=== PATIENT | female | born 1945 | race Caucasian/White ===

== ENCOUNTER → 2017-01-07 | Outpatient (CLI) | payer OTHER ==
[~2017-01-07] VITALS: Ht 152.4 cm; Wt 48.5 kg
[~2017-01-07] MED LIST: AMBIEN 5 MG TABL5 M1 PO; CIPROFLOXACIN500 M1 PO; FLAGYL500 MG PO; IBUPROFEN 600600 M1 PO; MAGNESIUM 300300 MG PO; MELATONIN3 MG PO; MOBIC7.5 MG PO; MOXIFLOXACIN H400 MG PO
--- NOTE | ~2017-01-07 | P ---
[facility] [place] [address] PROCEDURE REPORT Name: TAMIKO ZHAO Room #: REG [facility]erm[facility]erm[facility]#: [id number] Admission: 01/07/17 Attend Phys: Rick Pena Discharge: Date of : 49 Report #: [id number] THIS REPORT FOR: //name// CC: Rick Webber MD DATE OF SERVICE: 01/07/2017 PROCEDURE PERFORMED: Colonoscopy with biopsies. HISTORY OF PRESENT ILLNESS: The patient is a 71-year-old female with a history of diverticulitis. She had an episode in June 2016 and then again in September 2016, treated with antibiotics, both times. She does report intermittent left lower quadrant abdominal pain. Her last colonoscopy was in May 2010. Two polyps were removed at that time, one was hyperplastic and one was a tubular adenoma. No family history of colon cancer. PROCEDURE: The risks and benefits of the procedure were explained to the patient, those risks including, but not limited to bleeding, perforation, and the risk of sedation. She understood these risks and gave informed consent. Sedation was given using propofol per anesthesia. Next, a digital rectal exam was initially performed, which was normal. Next, using a standard Fujinon colonoscope, the scope was placed in the patient's anus and advanced under direct vision to the cecum. The overall prep was excellent. In the cecum, there was a 3-mm sessile polyp, this was removed with cold forceps, otherwise normal. The ileocecal valve was normal. The ascending, transverse and descending colon were normal. Multiple small diverticula were noted in the sigmoid colon. No evidence of inflammation, otherwise normal. The rectal mucosa was normal. On retroflexion, medium sized nonbleeding internal hemorrhoids were noted. The scope was then withdrawn and the procedure terminated. The patient tolerated the procedure well. IMPRESSION: 1. Sigmoid diverticulosis. 2. Small cecal polyp. 3. Internal hemorrhoids. 4. Otherwise, normal colonoscopy. RECOMMENDATIONS: 1. Await biopsy results. 2. If polyp is hyperplastic, repeat in 10 years; if adenomatous polyp, repeat in 5 years. 3. The patient apparently has had 4 episodes of diverticulitis. We discussed the possibility of surgical resection as an option. She actually has seen [address] [address] PROCEDURE REPORT Name: TAMIKO ZHAO Room #: REG PADMA Cliare#: [id number] Admission: 01/07/17 Attend Phys: Rick Pena Discharge: Date of : 49 Report #: [id number] Taylor in the past as well. Thank you for allowing me to participate in her care. <ELECTRONICALLY SIGNED> By: Rick Bridges MD 01/08/17 1714 0940 1457 Rick Bridges MD /nt
--- NOTE | ~2017-01-07 | S ---
[facility] [place] [address] SURGICAL PATH RPT PROCEDURE Name: NATACHA ZHAO Room #: REG CARORoc Claire#: [id number] Admission: 01/07/17 Date of : 49 Discharge: Report #: [id number] Path Case #: [id number] PATHOLOGY REPORT COLLECTION DATE: 01/07/2017 RECEIVED DATE: 01/07/2017 SUBMITTING PHYS: Dr. Rick Bridges OTHER PHYS: Dr. Arjun Webber SPECIMEN(S) RECEIVED: A.Polyp at cecum * * * * * * * * * * * * FINAL DIAGNOSIS: Polyp, at cecum, endoscopic biopsy: - Tubular adenoma. - Negative for high grade dysplasia. PATHOLOGIST: Elsie Lara M.D. REPORT ELECTRONICALLY SIGNED BY: Elsie Lara M.D. DATE/TIME: 01/08/2017 14:52 * * * * * * * * * * * * GROSS PATHOLOGY: Received in formalin labeled "Natacha Zhao, polyp at cecum," are three segments of hernández soft tissue measuring 0.6 x 0.3 x 0.1 cm in aggregate dimensions and ranging from 0.1 to 0.6 cm in maximum dimension. The specimen is submitted entirely in cassette A1. (CAA; 01/07/2017) CLINICAL HISTORY: Pre-op diagnosis: Diverticulitis Post-op diagnosis: Colon polyp, diverticulosis INITIAL CPT CODE(S): A; 66602 Professional services performed by [facility] at [facility] [address] [place] [address] Technical services performed by [facility] at [address] [place] [address], [address] [address]. [facility] [address] [place] [address] SURGICAL PATH RPT PROCEDURE Name: NATACHA ZHAO Room #: REG PADMA Claire#: [id number] Admission: 01/07/17 Date of : 49 Discharge: Report #: [id number] Path Case #: [id number] [facility] [address] [address] PHONE: [phone] DIRECTOR: Dustin Campbell M.D. * * * END OF REPORT * * *
== END | disposition home or self-care (01) ==
LOC: GI 07:58
DX: Z09 Encounter for follow-up examination after completed treatment for conditions other than malignant neoplasm (principal); D12.0 Benign neoplasm of cecum; K57.32 Diverticulitis of large intestine without perforation or abscess without bleeding; K64.8 Other hemorrhoids; Z87.19 Personal history of other diseases of the digestive system; Z98.890 Other specified postprocedural states
CPT/HCPCS: 62110; 62900

== ENCOUNTER 2017-02-26 05:23 | Inpatient (IN) | payer OTHER ==
[2017-02-26] VITALS (10 sets, daily range): BP systolic 102–153; BP diastolic 47–98
[~2017-02-26] VITALS: Ht 152.4 cm; Wt 49.0 kg
--- NOTE | ~2017-02-26 | S ---
[facility] [place] [address] SURGICAL PATH RPT PROCEDURE Name: NATACHA ZHAO Room #: 411-P DIS IN M.R.#: [id number] Admission: 02/26/17 Date of : 49 Discharge: 02/28/17 Report #: [id number] Path Case #: [id number] PATHOLOGY REPORT COLLECTION DATE: 02/26/2017 RECEIVED DATE: 02/26/2017 SUBMITTING PHYS: Dr. Ike Vazquez OTHER PHYS: Dr. Arjun Webber SPECIMEN(S) RECEIVED: A.Sigmoid colon- open end proximal * * * * * * * * * * * * FINAL DIAGNOSIS: Large intestine, sigmoid colon, colectomy: - Chronic diverticulitis in a background of extensive diverticulosis. - Margins of resection unremarkable and free of dysplasia or malignancy. (IUV:db; 02/28/2017) PATHOLOGIST: Elsie Lara M.D. REPORT ELECTRONICALLY SIGNED BY: Elsie Lara M.D. DATE/TIME: 02/28/2017 15:41 * * * * * * * * * * * * GROSS PATHOLOGY: The specimen is received in formalin labeled "Natacha Zhao, sigmoid colon, opened end proximal". Received is an oriented segment of colon measuring 5.4 cm in length by 1.8 cm in diameter. One margin is stapled closed and the opposite margin is opened. The attached pericolic fat measures up to 2.2 cm in thickness. The serosal surface is pink-hernández in appearance with a slight amount of overlying adhesions. The specimen is opened along the antimesenteric line to reveal light hernández mucosa with normal architectural folds. Sectioning reveals several diverticula, however, inflammation is not grossly distinct. Sectioning through the attached pericolic fat reveals no readily identifiable lymph nodes. The specimen is submitted representatively as follows: A1 proximal margin A2 distal margin A3-A4 client account representative sections of diverticula. (CAA; 02/27/2017) CLINICAL HISTORY: Diverticulitis [address] [address] SURGICAL PATH RPT PROCEDURE Name: NATACHA ZHAO Room #: 411-P [facility] IN M.R.#: [id number] Admission: 02/26/17 Date of : 49 Discharge: 02/28/17 Report #: [id number] Path Case #: [id number] INITIAL CPT CODE(S): A; 15409 Professional services performed by [facility] at [address] , [place] [address] Technical services performed by [employer] [employer] at [address] [place] [address], [facility] [address] [place] [address]. [facility] [address] [place] [address] PHONE: [phone] DIRECTOR: Dustin Campbell M.D. * * * END OF REPORT * * *
--- NOTE | ~2017-02-26 | O ---
[facility] [place] [address] OPERATIVE REPORT Name: TAMIKO ZHAO Stevie Room #: 411-P [facility] IN M.R.#: [id number] Admission: 02/26/17 Attend Phys: Ike Vazquez MD, Discharge: 02/28/17 Date of : 49 Report #: [id number] THIS REPORT FOR: //name// CC: Ike Vazquez Arjun Lawanda DATE OF SERVICE: 02/26/2017 PREOPERATIVE DIAGNOSES: Chronic recurrent sigmoid diverticulitis. PREOPERATIVE DIAGNOSIS: Chronic recurrent sigmoid diverticulitis. PROCEDURE PERFORMED: Robotic-assisted laparoscopic sigmoid colectomy. SURGEON: Ike Vazquez M.D. MECHANICAL CAD DESIGNER: Oneil Mittal M.D. ANESTHESIA: General endotracheal anesthesia. ESTIMATED BLOOD LOSS: Minimal (less than 10 mL). COMPLICATIONS: None appreciated. SPECIMENS: Segment of sigmoid colon to pathology with the open end being proximal. HISTORY OF PRESENT ILLNESS: The patient is a 71-year-old female who has had 4 bouts of acute sigmoid diverticulitis that have required antibiotic therapy over the past several months. The patient has undergone a colonoscopy showing multiple small diverticula within the sigmoid colon, but no other abnormal masses. After a thorough counseling, the patient has elected for sigmoid colectomy to avoid recurrent bouts of diverticulitis moving forward. DESCRIPTION OF PROCEDURE: After explaining the risks, benefits and alternatives of the procedure with the patient in detail in the preoperative holding area and obtaining written consent, the patient was brought to the operating room and placed supine on the operating room table. After conducting a thorough timeout procedure verifying correct patient and procedure, the patient was given general endotracheal anesthesia. Once adequate anesthesia was attained, her SCDs were hooked up to pneumatic compression device and she was given a preoperative dose of antibiotics in line with SCIP protocol. The patient's abdomen was prepped and draped in standard surgical sterile fashion after positioning her in the low lithotomy position with her legs in the Yellofin stirrups. 5 mL of 0.5% Marcaine with epinephrine were used to anesthetize the skin 2 cm cephalad to the umbilicus and 2 cm to the patient's right. A #15 bladed scalpel was used to [address] [address] OPERATIVE REPORT Name: TAMIKO ZHAO Stevie Room #: 411-P [facility].#: [id number] Admission: 02/26/17 Attend Phys: Ike Vazquez MD, Discharge: 02/28/17 Date of : 47 Report #: [id number] create a small skin deshaun at this location. A 5 mm Visiport was placed over 0 degree 5 mm laparoscope and was introduced through this incision site. Once intraabdominal placement was verified visually, the obturator for the trocar and laparoscope were both removed and the abdomen was insufflated to 15 mmHg using carbon dioxide gas. The laparoscope was changed to a 5-mm 30-degree laparoscope, which was reintroduced through this trocar. The entire abdomen was evaluated to ensure no injury upon entry and no pathology outside the sigmoid colon region in question. I now proceeded to place additional working trocars in standard fashion. Then, 8 mm robotic trocars were placed in the left mid abdomen at a midclavicular line at the level of the umbilicus as well as an additional 8 mm port in the extreme left lateral flank. I then placed a 12 mm robotic trocar in the right lower quadrant at the midclavicular line just inferior to the umbilicus. All three additional trocars were placed under direct vision after anesthetizing the skin at each location with 5 mL of 0.5% Marcaine with epinephrine and I had created appropriately sized skin nicks using #15 bladed scalpel. The laparoscope was then changed to the extreme left lateral trocar and the initially placed 5 mm port was upsized under direct vision to an 8 mm robotic port. Once this was done, the da Stefanie Xi robot was docked to all trocars in standard fashion with the 30 degree camera placed through the initially placed trocar just superior into the right of the umbilicus. I now proceeded to identify the area of sigmoid colon with chronic inflammation that was tethered to the left pelvic side wall. There were adhesions to the pelvic side wall and the robotic scissors were used with cautery to take down these adhesions and allow me to mobilize the sigmoid colon medially. I was able to score up the white line of Toldt laterally in a cephalad direction to allow complete mobilization of the left colon. The left lateral most trocar was used to retract the diseased segment of colon cephalad and I was able to easily identify the rectosigmoid juncture. The colon at this juncture was elevated and a window was made in the mesentery using cautery scissors. Once I had created a window in the mesentery, the robotic scissor tips were removed and the robotic Endo ERIC 45 mm stapler with a blue load was placed into the abdomen under direct vision. Once calibrated, the stapler was used to transect the colon at the rectosigmoid juncture by placing one blade of the staplers through the window in the mesentery clamping and firing. This provided complete transection of the colon as her colon was quite diminutive in size. I now proceeded to elevate the sigmoid colon anteriorly and using the robotic advanced energy device transected the mesentery in a cephalad direction staying near the bowel wall as this was not a cancer operation. Once dissection was carried cephalad above all areas of identifiable diverticulosis, I proceeded to assess to ensure I had enough length on the colon to reach the rectal stump. The patient had a significantly redundant descending and sigmoid colon and the area without any evidence of diverticulosis appeared to easily reach into the pelvis without any tension having to be placed on the potential anastomosis. At this juncture, I now proceeded to perform the transection of the colon after exteriorizing the specimen. A 10 mL of 0.5% Marcaine with epinephrine were used to anesthetize the skin in the low midline where she had a prior [address] [address] OPERATIVE REPORT Name: TAMIKO ZHAO Room #: 411-P [facility] IN .R.#: [id number] Admission: 02/26/17 Attend Phys: Ike Vazquez MD, Discharge: 02/28/17 Date of : 49 Report #: [id number] incision. A #15 bladed scalpel was used to create a 3 cm transverse skin incision at this location. Electrocautery was used to carry this incision down through skin and subcutaneous tissues to ensure hemostasis in a vertical fashion once the skin had been opened and I transected the fascia down the midline under direct vision with a robotic laparoscope opening the fascia longitudinally. Once this was opened, all robotic ports were removed, the robot was undocked and an Cortez wound retractor was placed through the suprapubic wound. I was able to easily grasp the resection specimen with a Reji clamp and elevated it through the wound. The bowel wall was cleaned off where it was healthy and there was no evidence of diverticulosis and I used the auto pursestring suture device at this location. A #10 bladed scalpel was used to transect the bowel and the specimen was passed off the field. The auto pursestring suture device was removed leaving the suture intact and I proceeded to size the colon and the rectal stump under direct vision with the laparoscope. The rectal stump could easily handle a 29 EEA sizer; however, the descending colon which had the open end with the pursestring suture intact would only handle a 25 EEA stapler as the [address] too large for the size of bowel. I therefore selected the 25 EEA stapler. The anvil for the EEA stapler was placed in the open end of bowel and the pursestring suture was tied down around it. There was no evidence of extra tissue overlying the peripheral edge of the anvil and as such, the anvil end was placed back into the abdomen. The Cortez cap was placed to the wound retractor to allow for re-insufflation of the abdomen. I then utilized the 30-degree 5 mm laparoscope, which was placed back through one of the 8 mm trocars and proceeded to place the 25 EEA stapler up the rectal stump, which was passed easily to the end. The spike was delivered through the end of the rectal stump and was easily mated to the anvil. The stapler was then ratcheted down ensuring that there was no twisting to the descending colon and then the stapler was fired. The stapler was opened and removed showing 2 complete anastomotic rings. I then filled the pelvis with normal saline and clamped the bowel proximal to the anastomosis and using a rigid proctoscope, insufflated the rectum through the anastomosis and having this be submerged under the normal saline, we saw no evidence of bubbling thereby signifying a negative leak test. We did this on 3 occasions showing no bubbling. The rigid proctoscope was removed and the irrigant in the abdomen was suctioned out. Irrigant ran clear. One final evaluation of the intra-abdominal domain showed no further evidence of pathology, we had complete hemostasis. The anastomosis was not under any tension whatsoever as it was quite lax. I now closed the 12 mm fascial incision under direct vision using an 0 PDS suture on a Billy-Holly suture passer device. This was tied down under direct vision. The abdomen was now fully desufflated. All ports removed under direct vision including the Cortez port. I then proceeded to close the fascial defect for the Cortez port using 0 PDS suture in standard running fashion. All wounds were irrigated and skin was closed using 4-0 Monocryl in standard subcuticular fashion and then Dermabond glue was applied to all skin wounds. At the end of the procedure, all instrument, needle and sponge counts were correct. The patient tolerated the procedure without incident. She was awakened in the [address] [address] OPERATIVE REPORT Name: TAMIKO ZHAO Stevie Room #: 411-P [facility] IN M.R.#: [id number] Admission: 02/26/17 Attend Phys: Ike Vazquez MD, Discharge: 02/28/17 Date of : 49 Report #: [id number] operating room and transitioned to the recovery room in stable condition with no apparent complications. <ELECTRONICALLY SIGNED> By: Ike Vazquez MD, FACS 02/28/17 1444 0846 0947 Ike Vazquez MD, ANNITA /nt
--- NOTE | ~2017-02-26 | EKG ---
[address] [address] ELECTROCARDIOGRAM REPORT Name: DARREN ZHAOI Stevie Room #: 411-P [facility] IN ..#: [id number] Admission: 02/26/17 Attend Phys: Ike Vazquez MD, Discharge: 02/28/17 Date of : 49 Report #: [id number] THIS REPORT FOR: //name// [facility] Test Date: 2017-02-26 Test Time: 06:52:17 Pat Name: TAMIKO ZHAO Department: Room: 411 Gender: F Malware Analyst: Angie : 1945 Requested By: Ike Vazquez Order Number: [id number] MD: Salas Lea Measurements Intervals [place] Rate: 70 P: 65 UT: 158 QRS: 37 QRSD: 79 T: 37 QT: 377 QTc: 407 Interpretive Statements Sinus rhythm Compared to ECG 11/05/1997 00:04:00 No significant changes Electronically Signed On 03-03-2017 21:37:27 CDT by Salas Lea [email or web address] <ELECTRONICALLY SIGNED> By: Salas Lea MD 03/03/17 2137 MD SHELIA Medina
[~2017-02-26 05:23] MED LIST changes: +FIBER500 MG PO
[2017-02-27] VITALS: BP 98/52
[2017-02-27 04:00] VITALS: BP 93/50
[2017-02-27 05:54] LABS: HEMATOCRIT 35.7 % (37.0-47.0); MCH 31.4 pg (26.0-34.0); MCHC 33.5 g/dL (28.0-37.0); MCV 93.5 fL (80.0-100.0); RBC 3.82 mil/uL (4.20-5.00); RDW 12.9 % (10.5-14.5); WBC 12.6 thou/uL (4.0-11.0)
[2017-02-27 06:04] LABS: CALCIUM 8.3 mg/dL (8.5-10.1); CREATININE 0.9 mg/dL (0.6-1.0); POTASSIUM 3.9 mmol/L (3.5-5.1)
[2017-02-27 08:00] VITALS: BP 90/43
[2017-02-27 17:18] VITALS: BP 119/64
[2017-02-27 20:00] VITALS: BP 135/68
[2017-02-28 04:02] LABS: CALCIUM 8.4 mg/dL (8.5-10.1); CREATININE 0.9 mg/dL (0.6-1.0); POTASSIUM 4.3 mmol/L (3.5-5.1)
[2017-02-28 04:19] LABS: ABSOLUTE NEUTROPHILS 4.9 thou/uL (1.4-8.2); BASOPHILS 1.3 % (0.0-2.0); EOSINOPHILS 1.9 % (0.0-3.0); HEMATOCRIT 35.2 % (37.0-47.0); HEMOGLOBIN 11.9 gm/dL (12.0-15.0); LYMPHOCYTES 32.9 % (24.0-44.0); MCHC 33.8 g/dL (28.0-37.0); MCV 94.6 fL (80.0-100.0); MONOCYTES 10.7 % (1.0-8.0); PLATELET COUNT 201 thou/uL (150-400); POLYS 53.2 % (36.0-66.0); RBC 3.73 mil/uL (4.20-5.00); RDW 12.8 % (10.5-14.5); WBC 9.3 thou/uL (4.0-11.0)
[2017-02-28 04:20] LABS: MANUAL DIFF NO
[2017-02-28 04:54] VITALS: BP 106/55
[2017-02-28 08:00] VITALS: BP 110/67
[2017-02-28 08:10] VITALS: BP 138/72
[2017-02-28] MEDS ORDERED: ZOFRAN ODT4 MG DISSOLVE (09:01)
[2017-02-28 11:41] VITALS: BP 138/72
== END 2017-02-28 12:11 | disposition home or self-care (01) | DRG 331 ==
LOC: TBA 05:23 → 4N 05:23 → PRE 09:25 → 4N 12:48 → PRE 14:36 → 4N 02-28 12:11
PROVIDERS: Surgery
PROC: 0DTN4ZZ Resection of Sigmoid Colon, Percutaneous Endoscopic Approach (ICD-10-PCS; principal; 2017-02-26)
DX: K57.32 Diverticulitis of large intestine without perforation or abscess without bleeding (principal); Z60.2 Problems related to living alone; Z88.6 Allergy status to analgesic agent; Z88.2 Allergy status to sulfonamides; Z79.899 Other long term (current) drug therapy
CPT/HCPCS: 10790; 49000; 50010; 50101; 50249; 50386; 50455; 50525; 50555; 50558; 51398; 51489; 52265; 54022; 54118; 56462; 56525; 56526; 56527; 56641; 57092; 62110; 62900; 70005

== ENCOUNTER 2019-06-22 11:12 | Emergency (ER) | payer OTHER ==
[~2019-06-22] VITALS: Ht 152.4 cm; Wt 49.9 kg
[~2019-06-22 11:12] MED LIST changes: +ZOFRAN ODT4 MG DISSOLVE
[2019-06-22] MEDS ORDERED: PROTONIX40 M2 PO (11:34)
[2019-06-22 12:05] LABS: URINE BILIRUBIN NEGATIVE (Negative); URINE BLOOD TRACE (Negative); URINE CLARITY CLEAR; URINE COLOR YELLOW; URINE GLUCOSE-RANDOM* NEGATIVE (Negative); URINE KETONES NEGATIVE (Negative); URINE LEUKOCYTES-REFLEX NEGATIVE (Negative); URINE NITRITE-REFLEX NEGATIVE (Negative); URINE PROTEIN (DIPSTICK) NEGATIVE (Negative); URINE UROBILINOGEN 0.2 E.U./dl (0.2-1.0)
[2019-06-22 12:17] LABS: ABSOLUTE NEUTROPHILS 3.5 thou/uL (1.4-8.2); BASOPHILS 3.2 % (0.0-2.0); EOSINOPHILS 3.4 % (0.0-3.0); HEMATOCRIT 40.9 % (37.0-47.0); HEMOGLOBIN 13.7 gm/dL (12.0-15.0); LYMPHOCYTES 21.5 % (24.0-44.0); MCH 31.4 pg (26.0-34.0); MCHC 33.5 g/dL (28.0-37.0); MCV 93.7 fL (80.0-100.0); MONOCYTES 11.2 % (1.0-8.0); PLATELET COUNT 234 thou/uL (150-400); POLYS 60.7 % (36.0-66.0); RBC 4.36 mil/uL (4.20-5.00); RDW 12.6 % (10.5-14.5); WBC 5.8 thou/uL (4.0-11.0)
[2019-06-22 12:22] LABS: CALCIUM 9.5 mg/dL (8.5-10.1); CREATININE 0.9 mg/dL (0.6-1.0); POTASSIUM 3.8 mmol/L (3.5-5.1)
[2019-06-22 12:28] LABS: ALBUMIN 3.5 g/dL (3.4-5.0); TOTAL BILIRUBIN 0.3 mg/dL (<0.1-1.0)
[2019-06-22] MEDS ORDERED: BENTYL 20 MG TA20 M1 PO (13:54)
[2019-06-22] MEDS ORDERED: ZOFRAN ODT4 MG PO (13:54)
[2019-06-22 14:21] VITALS: BP 152/75
== END 2019-06-22 14:24 | disposition home or self-care (01) ==
LOC: ER 11:12
PROVIDERS: Emergency Medicine
DX: A09 Infectious gastroenteritis and colitis, unspecified (principal); R10.84 Generalized abdominal pain; J45.909 Unspecified asthma, uncomplicated; Z91.041 Radiographic dye allergy status; Z88.5 Allergy status to narcotic agent; Z88.2 Allergy status to sulfonamides; Z79.899 Other long term (current) drug therapy; Z98.51 Tubal ligation status

== ENCOUNTER → 2020-01-08 | Outpatient (CLI) | payer OTHER ==
[~2020-01-08] MED LIST changes: +BENTYL 20 MG TA20 M1 PO; +BYSTOLIC 5 MG5 MG PO; +LIVALO4 MG PO; +PROTONIX40 M2 PO; +ZOFRAN ODT4 MG PO
== END ==
LOC: SJCVCIMAG 13:16
PROVIDERS: ATTEND Internal Medicine Cardiovascular Disease
DX: R07.9 Chest pain, unspecified (principal); R06.00 Dyspnea, unspecified; E78.5 Hyperlipidemia, unspecified; M19.90 Unspecified osteoarthritis, unspecified site; K21.9 Gastro-esophageal reflux disease without esophagitis; Z79.899 Other long term (current) drug therapy

== ENCOUNTER → 2020-01-11 | Outpatient (CLI) | payer OTHER ==
[~2020-01-11] VITALS: Ht 152.4 cm; Wt 48.5 kg
[2020-01-11 09:32] LABS: ABSOLUTE NEUTROPHILS 3.8 thou/uL (1.4-8.2); BASOPHILS 2.3 % (0.0-2.0); EOSINOPHILS 3.6 % (0.0-3.0); HEMATOCRIT 39.4 % (37.0-47.0); HEMOGLOBIN 13.6 gm/dL (12.0-15.0); LYMPHOCYTES 31.7 % (24.0-44.0); MCH 32.4 pg (26.0-34.0); MCHC 34.5 g/dL (28.0-37.0); MONOCYTES 9.6 % (1.0-8.0); PLATELET COUNT 246 thou/uL (150-400); POLYS 52.8 % (36.0-66.0); WBC 7.1 thou/uL (4.0-11.0)
[2020-01-11 09:42] LABS: CALCIUM 9.1 mg/dL (8.5-10.1); CREATININE 0.9 mg/dL (0.6-1.0); POTASSIUM 3.8 mmol/L (3.5-5.1)
[2020-01-11 09:58] VITALS: BP 142/76
--- NOTE | 2020-01-11 16:03 | CATHLAB ---
[facility] [place] [address] INVASIVE PROCEDURE REPORT Name: DARREN ZHAORoc Hubbard Room #: REG PADMA AguilarFermín#: [id number] Admission: 01/11/20 Attend Phys: Tee Weinstein MD, Discharge: Date of : 49 Report #: [id number] THIS REPORT FOR: cc: Arjun Webber MD, Steven A. MD Mancuso, Gerald M. MD [facility] ~ APPROVED REPORT Study performed: 01/11/2020 09:53:39 Patient Details Patient Status: Out-Patient Room #: The patient is a 74 year-old female Event Personnel Tee Weinstein Buildings And Grounds Supervisor, Freida Rosario RN, Ingrid Lofton RTR, [facility] Monitor, Apple Noyola RTR Monitor, Fabiana Gilman Procedures Performed Art Access - R femoral artery* Left Heart Cath w/or w/o Coronaries [id number] [facility] Aortogram Abdominal Peripheral Angio 558514 82736 Initial Mod Sed Same Phys/QHP Gr5y 317403 46143 Mod Sed Same Phys/QHP Ea 266337 Hemostasis w/ Mynx Indication Chest pain Procedure Narrative The Right Groin^ was infiltrated with 1% Lidocaine subcutaneous anesthesia. A PINNACLE 6FR Sheath #[id number] sheath was inserted into the RFA 6F^. Coronary angiography was performed using coronary diagnostic catheters. The right coronary system was accessed and visualized with a JR4 catheter. The left coronary system was accessed and visualized with a 6FR JL 3.5 #[id number] catheter. The left ventricle was accessed and visualized with a PIGTAIL catheter. Left ventriculogram was performed in 30 degree projection. An aortogram of the abdominal aorta was performed. Pre-demployment femoral angiogram was performed . Closure device was deployed with a 6 Fr MYNXGRIP 6/7F #[id number]. The patient tolerated the procedure well and there were no complications associated with the procedure. There was no hematoma. Intraoperative Conscious Sedation [facility] [address] [place] [address] INVASIVE PROCEDURE REPORT Name: PAVELTAMIKO A Room #: [facility]#: [id number] Admission: 01/11/20 Attend Phys: Tee Weinstein, Discharge: Date of : 49 Report #: [id number] Sedation start time: 10:52 Case end Time: 11:22 Fentanyl 75 mcg Versed 1.5 mg Fluoro Time: 3.19 minutes Dose: DAP 1271.80 cGycm2 132 mGy Contrast Type and Amount: Omnipaque 85 ml Hemodynamics The aortic pressure is 188/77 mmHg with a mean of 118 mmHg. The left ventricular pressure is 181/6 mmHg with a mean of mmHg. The left ventricular end diastolic pressure is 25 mmHg. Conclusion 1. Normal left jugular size and systolic function EF 60% #2 normal caliber abdominal aorta without aneurysm. Single bilateral renal arteries have mild plaquing #3 left main with mild irregularity giving rise to LAD and circumflex #4 LAD with mild diffuse distal disease no occlusive disease is noted. #5 small nondominant circumflex nonocclusive. #6 dominant right coronary artery without occlusive disease Recommendations and plan: Continue aggressive risk factor modification. There is no indication for coronary intervention. Etiology of chest pain appears to be noncardiac. <ELECTRONICALLY SIGNED> By: Tee Weinstein MD, FACC 01/11/20 160 160 01 Tee Weinstein MD, FACC /INF
--- NOTE | 2020-01-12 07:50 | EKG ---
[facility] [place] [address] ELECTROCARDIOGRAM REPORT Name: TAMIKO ZHAO Room #: REG [facility]#: [id number] Admission: 01/11/20 Attend Phys: Tee Weinstein MD, Discharge: Date of : 49 Report #: [id number] THIS REPORT FOR: cc: Arjun Webber MD, Steven A. MD Lundgren,Mesfin Lazcano MD [facility] ~ THIS REPORT FOR: //name// [facility] Test Date: 2020-01-11 Test Time: 09:33:06 Pat Name: TAMIKO ZHAO Department: Room: Gender: F Private Secretary: Hoda BRAY : 1945 Requested By: Tee Weinstein Order Number: [id number] MD: Mesfin Astorga Measurements Intervals [place] Rate: 60 P: 21 [place]: 154 QRS: 38 QRSD: 80 T: 34 QT: 395 QTc: 395 Interpretive Statements Sinus rhythm Normal tracing Compared to ECG 02/26/2017 06:52:17 No significant changes Electronically Signed On 01-12-2020 7:49:22 CDT by Mesfin Astorga [email or web address] <ELECTRONICALLY SIGNED> By: Mesfin Astorga MD, [facility] 01/12/20 0749 0933 Mesfin Astorga MD, [facility] /EPI
== END | disposition home or self-care (01) ==
LOC: CATH 08:21
PROVIDERS: ATTEND Internal Medicine Cardiovascular Disease
DX: R07.9 Chest pain, unspecified (principal); I25.10 Atherosclerotic heart disease of native coronary artery without angina pectoris; I70.1 Atherosclerosis of renal artery; E78.5 Hyperlipidemia, unspecified; J45.909 Unspecified asthma, uncomplicated; K21.9 Gastro-esophageal reflux disease without esophagitis; Z98.890 Other specified postprocedural states; Z79.899 Other long term (current) drug therapy; Z98.51 Tubal ligation status; Z91.041 Radiographic dye allergy status; Z88.8 Allergy status to other drugs, medicaments and biological substances; Z88.2 Allergy status to sulfonamides

== ENCOUNTER → 2020-01-28 | Outpatient (CLI) | payer OTHER | LOC: SJCVC 12:55 | PROVIDERS: ATTEND Internal Medicine Cardiovascular Disease | DX: I25.10 Atherosclerotic heart disease of native coronary artery without angina pectoris (principal); E78.00 Pure hypercholesterolemia, unspecified; K21.9 Gastro-esophageal reflux disease without esophagitis; M19.90 Unspecified osteoarthritis, unspecified site; Z82.49 Family history of ischemic heart disease and other diseases of the circulatory system; Z87.891 Personal history of nicotine dependence ==

== ENCOUNTER → 2021-01-27 | Outpatient (CLI) | payer OTHER | LOC: SJCVC 13:17 | PROVIDERS: ATTEND Internal Medicine Cardiovascular Disease | DX: I25.10 Atherosclerotic heart disease of native coronary artery without angina pectoris (principal); E78.00 Pure hypercholesterolemia, unspecified; K21.9 Gastro-esophageal reflux disease without esophagitis; M19.90 Unspecified osteoarthritis, unspecified site; E78.5 Hyperlipidemia, unspecified; Z88.5 Allergy status to narcotic agent; Z88.2 Allergy status to sulfonamides; Z88.8 Allergy status to other drugs, medicaments and biological substances; Z79.899 Other long term (current) drug therapy; Z82.49 Family history of ischemic heart disease and other diseases of the circulatory system ==